=== PATIENT | female | born 1965 | race Caucasian/White ===

== ENCOUNTER → 2017-01-05 | Outpatient (CLI) | payer OTHER ==
[~2017-01-05] VITALS: Ht 167.6 cm; Wt 64.4 kg
[~2017-01-05] MED LIST: ALLEGRA ALLERG180 MG PO; ASPIR 8181 MG PO; CLARAVIS10 MG PO; CRESTOR10 MG PO; FLONASE 0.05%50 MCG NS; HORMONE REPLACEMENT SL; LEVOTHYROXIN0.088 MG PO; PROBIOTIC1 EAC1 PO; VITAMIN D1000 UNI1 PO; VYVANSE10 MG PO; ZOLOFT100 MG PO
--- NOTE | ~2017-01-05 | HPC ---
[facility] [address] [place] [address] PAIN MANAGEMENT CONSULTATION Name: KIYA SADLER Boby Room #: REG Miles Greer.#: [id number] Admission: 01/05/17 Attend Phys: Edgar Clemente MD Discharge: Date of : 61 Report #: [id number] THIS REPORT FOR: //name// CC: Leona Clemente DATE OF SERVICE: 01/05/2017 CHIEF COMPLAINT: Cervicalgia radiating into the occiput. My friend, the patient is here today for consultation regarding neck pain. She has had intermittent neck pain off and on since November. It began at night and she woke with a tension in the back of her head radiating up into the occipital nerve distribution bilaterally. She describes it as a constant dull headache. It was made worse with all movements and rotating, tilting her head or extending her neck, all exacerbated pain. Consequently, she tended to guard for the next several weeks. Pain worsened. At times, it was a 10/10. Some the most intense pain she has ever had, but it was momentary shooting pain. The rest of the time more of a steady, suboccipital headache. She has also on occasion had pain that radiates down into her arms with numbness and tingling, but this is very intermittent. 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 She has been involved in triathlons and other types of activities. She enjoys exercising and yoga. She actually backed off of exercise when she had pain in her neck. She reports that she went to a yoga class recently and found that her pain was better. Other treatments have included some dry needling, massage, which helped for a short time. She was given muscle relaxant cyclobenzaprine but did not like the way it made her feel. Currently, she is not taking a regular dose of any medication for pain. MEDICATIONS: Currently are Zoloft 100 mg daily, levothyroxine, rosuvastatin, Aidee, Flonase, baby aspirin, Vyvanse, probiotic and vitamin D. ALLERGIES: None. PAST MEDICAL HISTORY: Significant for hypothyroidism, mild depression. She has had surgery on her forearm in 2004, previous laparoscopy in 1989. SOCIAL HISTORY: She works at [employer] in [employer]. She denies use of tobacco. She drinks alcohol in a social setting. REVIEW OF SYSTEMS: Positive for headaches as described above, mild hearing [facility] [address] [place] [address] PAIN MANAGEMENT CONSULTATION Name: KIYA SADLER [facility] #: [facility] [id number] Admission: 01/05/17 Attend Phys: Edgar Clemente MD Discharge: Date of : 61 Report #: [id number] loss, dizziness, lightheadedness with medication and a history of depression, which has been well controlled. She has been tested positive for Leiden factor V. PHYSICAL EXAMINATION: GENERAL: She is very fit appearing 51-year-old. VITAL SIGNS: Blood pressure is 136/77, heart rate 59. CHEST: Clear. CARDIAC: Rhythm is regular. Because of statements on her plain film x-rays suggesting calcifications of the carotids, I did listen bilaterally, there was no evidence of bruit. Cervical range of motion is mildly limited in lateral tilt and extension as well as rotation, but this is only mild restriction. It causes some pain in the base of the skull in the occipital region without radiation up into the occipital nerve distribution. Mild tenderness there. Examination of the muscles of the upper back of the neck is normal. Examination of the arms reveals normal sensation and strength. She has a bit hyperreflexia 3+ diffusely throughout the upper and lower extremities. IMPRESSION: Cervicalgia, likely myofascial. I reviewed for her her x-rays including an MRI. It does show that she has some degenerative disk disease at C5-C6 and C6-C7, although I did not look at the films. I read the report thoroughly and it described some facet and hypertrophic changes resulting in mild effacement of the anterior thecal sac without high grade central stenosis or neural foraminal narrowing at either level. In the area where she has her pain up in occiput, you would look to see if there was any sort of facet or other change in the C2-C3, C3-C4 region and there is nothing going on there at all. I think the changes that we are seeing are typical of a very active 51-year-old and do not require further evaluation. Long discussion about myofascial pain and how oftentimes muscle spasm will cause these symptoms and can cause a radiating occipital type headache. This may be mediated through the C3 nerve as it becomes involved in myofascial tension. Gentle range of motion, massage may be helpful for this. If the pain gets very severe, she can certainly try Tylenol No. 3 or something to break the cycle of pain rather than cyclobenzaprine, which has some anticholinergic and dizzy side effects. I want her to try this at home carefully and I only gave her 30 tablets to be taken 1 q. 6 hours as needed. They were called in. [facility] [address] [place] [address] PAIN MANAGEMENT CONSULTATION Name: VIKTORIYAKIYA Boby Room #: REG BLADE Greer.#: [id number] Admission: 01/05/17 Attend Phys: Edgar Clemente MD Discharge: Date of : 61 Report #: [id number] No followup visit is scheduled or necessary. I will see her as needed. By: [id number] Edgar Clemente MD /nt
[2017-01-05 13:37] VITALS: BP 135/77
== END ==
LOC: PAIN 10:37
DX: M50.322 Other cervical disc degeneration at C5-C6 level (principal); M50.323 Other cervical disc degeneration at C6-C7 level; E03.9 Hypothyroidism, unspecified; F32.9 Major depressive disorder, single episode, unspecified; E11.9 Type 2 diabetes mellitus without complications

== ENCOUNTER → 2019-02-26 | Outpatient (CLI) | payer OTHER ==
[~2019-02-26] VITALS: Ht 167.6 cm; Wt 63.8 kg
[~2019-02-26] MED LIST changes: +CELEBREX 200 M200 M1 PO; +D MANNOSE; +TIROSINT100 MCG PO; +TYLENOL EXTRA500 MG PO; +[UNRECOGNIZED DRUG - OTHER]
--- NOTE | ~2019-02-26 | HPC ---
[facility] [address] [place] [address] PAIN MANAGEMENT CONSULTATION Name: KIYA SADLER Boby Room #: REG OMARMiles Greer.#: [id number] Admission: 02/26/19 ������������������ Attend Phys: Edgar Clemente MD Discharge: ������������������ Date of : 61 Report #: [id number] THIS REPORT FOR: //name// CC: Leona Clemente DATE OF SERVICE: 02/26/2019 Followup visit for cervical radiculopathy. The patient returns to the clinic today for cervical epidural. I reviewed her MRI. She has degenerative disk disease at C5-C6 as well as the C6-C7 with encroachment upon the right side with right neural foraminal stenosis at C5-C6. This would affect the C5 nerve root and she has classic radiating and radicular symptoms. The benefits of a cervical epidural injection have been reviewed and discussed. She would like to proceed today with injection. PHYSICAL EXAMINATION: GENERAL: Pleasant female, who looks younger than her stated age. She has tenderness across her neck. She is very fit. VITAL SIGNS: Her blood pressure is 126/69, heart rate 68, respirations 15. Cervical range of motion is limited in extension, which reproduces her usual symptoms. Deep tendon reflexes are diminished biceps, triceps and brachioradialis. Mild sensory loss is demonstrated to pinprick in the C7-C8 distribution. Hyporeflexia upper and lower extremities. IMPRESSION: Cervical radiculopathy secondary to C5-C6 neural foraminal narrowing. RECOMMENDATIONS: Cervical epidural injection under fluoroscopic guidance. PROCEDURE: She was taken to fluoroscopic suite, placed prone, skin prepped with ChloraPrep. Skin anesthetized over the C6-C7 interspace. A 20-gauge Tuohy epidural needle advanced first attempt into the epidural space using loss of resistance in midline. A 1 mL of Omnipaque was injected. Good spread of dye was observed within the epidural space. The majority of medications spreading initially to the left. I did not replace the needle as there was spread also to the right. This was then followed by 3 mL of 0.5% lidocaine mixed with 80 mg triamcinolone. Needle was removed. She was placed in the right lateral decubitus position for 10 minutes before discharge to recovery room. She had bilateral numbness, bit more pronounced on the right. Pain was reduced at the [address] [address] PAIN MANAGEMENT CONSULTATION Name: KIYA SADLER Room #: REG [facility].#: [id number] Admission: 02/26/19 ������������������ Attend Phys: Edgar Clemente MD Discharge: ������������������ Date of : 61 Report #: [id number] time of discharge. Pain in followup is planned by phone in 1-2 weeks. May consider a second injection in 1 month. ��������������������������������������������� ���������������������������������������� By: ��������������������������������������������� [id number] Edgar Clemente MD /nt
[2019-02-26 14:02] VITALS: BP 126/69
--- NOTE | 2019-02-26 14:09 | NUR ---
Pain Clinic Assessment: 1. History of Osteoarthritis: SPINE History of Rheumatoid Arthritis: NONE 2. Height: 5 ft. 6 in. 167.6 cm. Weight: 140.6 lb. oz. 63.776 kg. Patient's BMI: 22.7 3. Vital Signs: BP: 126/69 Pulse: 68 Resp: 18 Temp: 02 Sat: 99 ECG Mon: 4. Pain Intensity: 3-4 5. Fall Risk: Dizziness: N Needs help standing or walking: N Fallen in the last 3 months: N Fall risk comments: 6. Patient on Blood Thinner: None 7. History of Hypertension: N 8. Opioid Therapy greater than 6 weeks: N Opiate Contract Signed: 9. Risk Assessment Tool Provided: 10. Functional Assessment Tool: 11. Recreational Drug Use: Never Drug Type: Tobacco Use: Never Smoker Tobacco Type: Amount or Packs/day: How Many Years: Alcohol Use: Yes Frequency: Quant:
== END | disposition home or self-care (01) ==
LOC: PAIN 06:58
DX: M50.122 Cervical disc disorder at C5-C6 level with radiculopathy (principal); M48.02 Spinal stenosis, cervical region; Z79.899 Other long term (current) drug therapy

== ENCOUNTER → 2019-04-26 | Outpatient (CLI) | payer BC ==
--- NOTE | ~2019-04-26 | HPC ---
[facility] [place] [address] PAIN MANAGEMENT CONSULTATION Name: KIYA SADLER Boby Room #: REG BLADE Greer.#: [id number] Admission: 04/26/19 ������������������ Attend Phys: Edgar Clemente MD Discharge: ������������������ Date of : 61 Report #: [id number] THIS REPORT FOR: //name// CC: TRACY Clemente DATE OF SERVICE: 04/26/2019 Followup visit for cervical radiculopathy. The patient returns to pain clinic today with increasing pain in the right shoulder and arm. She has MRI evidence of degenerative disk disease with neural foraminal stenosis on the right concordant with her pain at C5-C6. She had a previous cervical epidural injection, responded favorably, but the duration of response was not as long as hoped for. She is here today hoping for additional benefit from a repeat injection. Her last injection showed spread a bit more to the left than the right. Today, I told her that we would do our best to inject paramedian to the right. 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 We talked about the importance of good mechanics while riding her bicycle. Her neck should be in upright position without neck extension. She should also consider cutting down on impact sports which may also worsen not only her neck pain, but her low back pain with radiculopathy. She has lumbar radiculopathy as well, mostly related to anterolisthesis of L5 and S1 and severe degenerative disk disease at that level. PHYSICAL EXAMINATION: GENERAL: She is a macho 54-year-old female, pleasant, alert and oriented. No signs of overmedication, depression or anxiety. VITAL SIGNS: Her blood pressure is 126/80, heart rate 61, respirations 14. Pain score is 3 at rest, 5-6 with activity. She moves easily from sitting to standing position. Gait is nonantalgic. There is no spasticity. NECK: Neck range of motion is limited in flexion, extension and rotation all which reproduces some discomfort. She has tenderness along the right neck. Deep tendon reflexes are brisk at biceps, triceps and brachioradialis as well as in the lower extremities. She has mild Ashraf's on the right, although when checked later, it was no longer there. 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 IMPRESSION: Cervical radiculopathy, right C6 distribution. RECOMMENDATIONS: Cervical epidural injection under fluoroscopic guidance. PROCEDURE: She was taken to fluoroscopic suite, placed prone, [place] [id number] PAIN MANAGEMENT CONSULTATION Name: VIKTORIYAKIYA Boby Room #: REG Miles Shaw#: [id number] Admission: 04/26/19 ������������������ Attend Phys: Edgar Clemente MD Discharge: ������������������ Date of : 61 Report #: [id number] ChloraPrep. Skin anesthetized over the C6-C7 interspace. Using biplanar fluoroscopic views, I advanced the needle into the epidural space. There was no blood or CSF aspirated. A 1 mL of Omnipaque was injected. Good spread of dye observed into the epidural space extending along the right lateral recess. It was then followed by 3 mL of 1% lidocaine mixed with 10 mg of dexamethasone. She tolerated the procedure well and was taken to recovery room. While in the recovery room, she had a vagal response or perhaps a sympathetic response related to the sympathetic nerve block from lidocaine and extending into the thoracic region as well. She was mildly hypotensive and her heart rate dropped into the mid 40 for a short time before returning back up in the 50s. At the time of discharge, her blood pressure was 123/72, heart rate 52. She felt well and was ambulating in the clinic and discharged with no complaints. Followup visit planned by phone. ��������������������������������������������� ���������������������������������������� By: ��������������������������������������������� [id number] Edgar Clemente MD /nt
[2019-04-26 08:47] VITALS: BP 126/80
[2019-04-26 08:50] VITALS: BP 126/80
--- NOTE | 2019-04-26 08:52 | NUR ---
Pain Clinic Assessment: 1. History of Osteoarthritis: SPINE History of Rheumatoid Arthritis: NONE 2. Height: 5 ft. 6 in. 167.6 cm. Weight: lb. oz. kg. Patient's BMI: 3. Vital Signs: BP: 126/80 Pulse: 61 Resp: 14 Temp: 02 Sat: 100 ECG Mon: 4. Pain Intensity: NOT BAD PER PATIENT 5. Fall Risk: Dizziness: N Needs help standing or walking: N Fallen in the last 3 months: N Fall risk comments: 6. Patient on Blood Thinner: None 7. History of Hypertension: N 8. Opioid Therapy greater than 6 weeks: N Opiate Contract Signed: 9. Risk Assessment Tool Provided: 10. Functional Assessment Tool: 11. Recreational Drug Use: Never Drug Type: Tobacco Use: Never Smoker Tobacco Type: Amount or Packs/day: How Many Years: Alcohol Use: Yes Frequency: Quant:
== END | disposition home or self-care (01) ==
LOC: PAIN 06:44
DX: M50.123 Cervical disc disorder at C6-C7 level with radiculopathy (principal); M99.73 Connective tissue and disc stenosis of intervertebral foramina of lumbar region; Z79.899 Other long term (current) drug therapy

== ENCOUNTER → 2019-07-23 | Outpatient (CLI) | payer BC ==
[~2019-07-23] VITALS: Ht 167.6 cm; Wt 63.9 kg
[~2019-07-23] MED LIST changes: +VITAMIN B122500 MCG PO
--- NOTE | ~2019-07-23 | HPC ---
[facility] [place] [address] PAIN MANAGEMENT CONSULTATION Name: KIYA SADLER [facility] [id number] Admission: 07/23/19 Attend Phys: Edgar Clemente MD Discharge: Date of : 61 Report #: [id number] THIS REPORT FOR: //name// CC: Leona Clemente DATE OF SERVICE: 07/23/2019 Followup visit for low back pain with radiculopathy, grade 1 anterolisthesis L5 on S1. Kiya returns to pain clinic today experiencing both mechanical low back pain, but also radiculopathy down into the posterior aspect of her legs. Pain is similar bilaterally perhaps a bit worse on the left than the right. She has a known anterolisthesis of L5 on S1 and has responded nicely to intermittent epidural injections. Today, she complains of pain intensity of about 5/10. It is worse with increasing exercise. The patient is an active 54-year-old who enjoys bicycling and running. She continues to pursue her athletic endeavors. We just talked about the importance of using good common sense in body mechanics. PHYSICAL EXAMINATION: She is 5 feet 6 inches, 140 pounds, BMI is 22.7. Her blood pressure is 130/85, heart rate is 58, O2 sat 98. She appears fit. She moves independently from sitting to standing position, ambulates without antalgic features. Examination of the spine reveals a marked palpable spondylolisthesis and the spinous processes prominent at L5. She has good range of motion in flexion, extension, rotation and lateral tilt without any exacerbation of back pain and radiculopathy. Straight leg raising is moderately positive in both the sitting and supine position. There is normal sensation and strength throughout the lower extremities. Deep tendon reflexes are 2+ knees and diminished 1+ at the ankles. IMPRESSION: Lumbar radiculopathy secondary to anterolisthesis of L5 on S1. RECOMMENDATION: Epidural steroid injection L5-S1 under fluoroscopic guidance. DESCRIPTION OF PROCEDURE: She was taken to fluoroscopic suite for treatment, placed prone, skin prepped with ChloraPrep. Skin anesthetized on the L5-S1 interspace. A 20-gauge Tuohy epidural needle was advanced on the first attempt into the epidural space with loss of resistance technique. There was no blood or CSF aspirated. A 1 mL of Omnipaque was injected. Good spread of dye [address] [address] PAIN MANAGEMENT CONSULTATION Name: KIYA SADLER Room #: REG CLI [facility]#: [id number] Admission: 07/23/19 Attend Phys: Edgar Clemente MD Discharge: Date of : 61 Report #: [id number] observed into the epidural space followed by 3 mL of 0.5% lidocaine mixed with 80 mg of triamcinolone. She tolerated the procedure well and was observed for 45 minutes and discharged. Follow up as needed. By: [id number] Edgar Clemente MD /[place]
[2019-07-23 08:47] VITALS: BP 130/85
--- NOTE | 2019-07-23 08:59 | NUR ---
Pain Clinic Assessment: 1. History of Osteoarthritis: SPINE History of Rheumatoid Arthritis: NONE 2. Height: 5 ft. 6 in. 167.6 cm. Weight: 140.8 lb. oz. 63.866 kg. Patient's BMI: 22.7 3. Vital Signs: BP: 130/85 Pulse: 58 Resp: 14 Temp: 02 Sat: 98 ECG Mon: 4. Pain Intensity: 5 5. Fall Risk: Dizziness: N Needs help standing or walking: N Fallen in the last 3 months: N Fall risk comments: 6. Patient on Blood Thinner: None 7. History of Hypertension: N 8. Opioid Therapy greater than 6 weeks: N Opiate Contract Signed: 9. Risk Assessment Tool Provided: 10. Functional Assessment Tool: 11. Recreational Drug Use: Never Drug Type: Tobacco Use: Never Smoker Tobacco Type: Amount or Packs/day: How Many Years: Alcohol Use: Yes Frequency: Daily Quant: WINE
== END | disposition home or self-care (01) ==
LOC: PAIN 06:53
DX: M54.16 Radiculopathy, lumbar region (principal); M43.17 Spondylolisthesis, lumbosacral region; G89.29 Other chronic pain; Z98.890 Other specified postprocedural states; Z79.899 Other long term (current) drug therapy